=== PATIENT | female | born 1940 | race African-American/Black ===

== ENCOUNTER 2018-04-11 09:10 | Inpatient (IN) | payer OTHER ==
[2018-04-11 09:48] LABS: Absolute Lymphocytes (CBC) 0.7 K/uL (0.7-4.9); Absolute Monocytes 0.2 K/uL (0.1-1.3); Absolute Neutrophil 4.8 K/uL (1.8-8.0); Basophils % 0.5 % (0-1.3); Eosinophils % 0.3 % (0-4.4); Hematocrit 32.4 % (36.0-45.0); Lymphocytes % 11.8 % (15.3-44.8); MCH 30.2 pg (27.0-35.0); MPV 9.9 fL (7.6-11.3); Monocytes % 3.1 % (3.3-12.3); RBC Red Blood Cell Count 3.52 M/uL (3.86-4.86)
[2018-04-11 10:40] LABS: Potassium 5.9 mmol/L (3.5-5.1)
[2018-04-11] MEDS ORDERED: ALBUTEROL 2.5 MG/3 ML NEB SOL ONE (11:05)
[2018-04-11] MEDS ORDERED: NA CHLORIDE 0.9% 1,000 ML ONE ×2 (11:05→13:45)
[2018-04-11] MEDS ORDERED: D50W 25 GM/50 ML SYRINGE IV ONE ×2 (11:11→13:10)
[2018-04-11] MEDS ORDERED: Caclcium Chloride 10% INJ SYR IV ONE (11:24)
[2018-04-11 11:31] LABS: Urine Bacteria 20-50 /HPF (<20); Urine Culture Reflex Order REFLEXED
[2018-04-11 11:32] LABS: Urine Blood 3+ (NEG); Urine Glucose NEGATIVE (NEG); Urine Protein 2+ (NEG); Urine Specific Gravity 1.015 (1.005-1.030); Urine pH 6.5 (5.0-7.0)
[2018-04-11 11:32] LABS: Urine Mucus 2+ /HPF (NONE SEEN)
--- NOTE | 2018-04-11 11:47 | RAD REPORT ---
EXAM DESCRIPTION: CT - Stone Protocol - 04/11/2018 11:23 am CLINICAL HISTORY: Abdominal pain. Acute renal insufficiency COMPARISON: January 2017 TECHNIQUE: Computed axial tomography of the abdomen pelvis was obtained without oral or IV contrast. Lack of IV and oral contrast limits evaluation of solid organs, bowel, and vessels. Coronal reformat leonard images were obtained and reviewed. All CT scans are performed using dose optimization technique as appropriate and may include automated exposure control or mA/KV adjustment according to patient size. FINDINGS: Mild to moderate bilateral hydronephrosis. Ureters are dilated. A renal calculus is not se en. An ureteral calculus is not noted. A bladder calculus is not present. There appears to be promine nt soft tissue along the posterior aspect of the bladder bilaterally The liver, spleen, pancreas and adrenals appear grossly normal A filter is present within the inferior vena cava. There is no evidence of diverticulitis. The appendix is normal. Mild periaortic/caval lymphadenopathy diminished in caliber from the prior exam. Pelvic lymph nodes. Largest in the right miter grinder operator chain measuring 49 x 25 millimeters. Right inguinal lymphadenopathy. IMPRESSION: Mild to moderate bilateral hydronephrosis with dilatation the ureters. There appears to be prominent soft tissue involving the posterior aspect of the bladder bilaterally likely obstructing distal ureters
--- NOTE | 2018-04-11 12:16 | RAD REPORT ---
EXAM DESCRIPTION: [place] Single View04/11/2018 11:42 am CLINICAL HISTORY: Abdominal pain COMPARISON: 2017 FINDINGS: The lungs appear clear of acute infiltrate. The heart is mildly enlarged IMPRESSION: No acute abnormalities displayed
[2018-04-11 12:38] LABS: Potassium 5.8 mmol/L (3.5-5.1)
[2018-04-11] MEDS ORDERED: SOD POLYSTYREN SUL 15 GM/60 ML UCUP ONE ×2 (12:45→15:35)
--- NOTE | 2018-04-11 12:50 | EDPHYS ---
Physician Documentation [facility] Name: Sher Martinez Age: 77 yrs Sex: Female : 1940 Arrival Date: 04/11/2018 Time: 09:10 Bed 4 Private MD: ED Physician Roly Monzon HPI: 04/11 09:23 This 77 yrs old Black Female presents to ER via Unassigned with complaints of Low Blood snw Sugar. 09:23 The patient or guardian reports altered mental status, hypoglycemia, that was snw potentially precipitated by recent UTI, with the patient's symptoms witnessed by family. Onset: The symptoms/episode began/occurred suddenly, this morning. Associated signs and symptoms: Pertinent positives: weakness. Current symptoms: In the emergency department the patient's symptoms have improved, moderately. It is unknown whether or not the patient has had similar symptoms in the past. The patient has been recently seen by a physician: the patient's primary care provider, with different complaint(s), and apparently was diagnosed with UTI. Historical: - Allergies: 09:12 metformin; sv - PMHx: 09:12 Diabetes - NIDDM; Hypertension; ovarian CA; sv 09:12 DVT; ca1 - PSHx: 09:12 C section; sv 09:12 IVC filter; ca1 - Immunization history:: Pneumococcal vaccine is not up to date, it has been more than five years since last vaccine, Flu vaccine is not up to date. It has been more than one year since last vaccine. - Ebola Screening: : Patient negative for fever greater than or equal to 101.5 degrees Fahrenheit, and additional compatible Ebola Virus Disease symptoms Patient denies exposure to infectious person Patient denies travel to an Ebola-affected area in the 21 days before illness onset No symptoms or risks identified at this time. - Social history:: Smoking status: Patient/guardian denies using tobacco products, Smoking status: Patient/guardian denies using tobacco. ROS: 09:21 Constitutional: Negative for fever, chills, and weight loss, Eyes: Negative for injury, snw pain, redness, and discharge, ENT: Negative for injury, pain, and discharge, Neck: Negative for injury, pain, and swelling, Cardiovascular: Negative for chest pain, palpitations, and edema, Respiratory: Negative for shortness of breath, cough, wheezing, and pleuritic chest pain, Abdomen/GI: Negative for abdominal pain, nausea, vomiting, diarrhea, and constipation, Back: Negative for injury and pain, : Negative for injury, bleeding, discharge, and swelling, MS/Extremity: Negative for injury and deformity, Skin: Negative for injury, rash, and discoloration. 09:21 Neuro: Positive for altered mental status, weakness, just finished Keflex for UTI, sees PCP at [facility]. Exam: 09:21 Constitutional: This is a well developed, well nourished patient who is awake, alert, snw and in no acute distress. Head/Face: Normocephalic, atraumatic. Eyes: Pupils equal round and reactive to light, extra-ocular motions intact. Lids and lashes normal. Conjunctiva and sclera are non-icteric and not injected. Cornea within normal limits. Periorbital areas with no swelling, redness, or edema. ENT: Nares patent. No nasal discharge, no septal abnormalities noted. Tympanic membranes are normal and external auditory canals are clear. Oropharynx with no redness, swelling, or masses, exudates, or evidence of obstruction, uvula midline. Mucous membranes moist. Neck: Trachea midline, no thyromegaly or masses palpated, and no cervical lymphadenopathy. Supple, full range of motion without nuchal rigidity, or vertebral point tenderness. No Meningismus. Chest/axilla: Normal chest wall appearance and motion. Nontender with no deformity. No lesions are appreciated. Cardiovascular: Regular rate and rhythm with a normal S1 and S2. No gallops, murmurs, or rubs. Normal PMI, no JVD. No pulse deficits. Respiratory: Lungs have equal breath sounds bilaterally, clear to auscultation and percussion. No rales, rhonchi or wheezes noted. No increased work of breathing, no retractions or nasal flaring. Abdomen/GI: Soft, non-tender, with normal bowel sounds. No distension or tympany. No guarding or rebound. No evidence of tenderness throughout. Back: No spinal tenderness. No costovertebral tenderness. Full range of motion. Skin: Warm, dry with normal turgor. Normal color with no rashes, no lesions, and no evidence of cellulitis. MS/ Extremity: Pulses equal, no cyanosis. Neurovascular intact. Full, normal range of motion. Neuro: Awake and alert, GCS 15, oriented to person, place, time, and situation. Cranial nerves II-XII grossly intact. Motor strength 5/5 in all extremities. Sensory grossly intact. Cerebellar exam normal. Normal gait. Psych: Awake, alert, with orientation to person, place and time. Behavior, mood, and affect are within normal limits. Vital Signs: 09:06 BP 147 / 57; Pulse 73; Resp 19 S; Pulse Ox 96% on R/A; Weight 98.43 kg; Height 5 ft. 2 ca1 in. (157.48 cm); 09:12 Temp 96.6(TE); aa5 10:05 BP 110 / 83; Pulse 69; Resp 18; Pulse Ox 100% on R/A; ca1 10:45 BP 120 / 71; Pulse 69; Resp 18; Pulse Ox 100% on R/A; ca1 11:50 BP 121 / 107; Pulse 69; Resp 16; Pulse Ox 100% on R/A; ca1 12:31 BP 136 / 72; Pulse 66; Resp 13; Temp 97.4(C); Pulse Ox 100% on R/A; mh5 12:55 BP 148 / 66; Pulse 81; Resp 19; Temp 98.2(C); Pulse Ox 100% on R/A; ca1 13:17 BP 140 / 66; Pulse 81; Resp 19; Temp 97.2; Pulse Ox 100% on R/A; ca1 14:21 BP 135 / 59; Pulse 83; Resp 18; Temp 98.2; Pulse Ox 100% on R/A; ca1 15:32 BP 148 / 66; Pulse 81; Resp 18; Temp 98.2(C); Pulse Ox 100% on R/A; ca1 16:36 BP 136 / 59; Pulse 82; Resp 19; Temp 98.9; Pulse Ox 100% ; ca1 17:21 BP 141 / 70; Pulse 83; Resp 18; Temp 99.2; Pulse Ox 100% on R/A; ca1 09:06 Body Mass Index 39.69 (98.43 kg, 157.48 cm) ca1 MDM: 09:13 Patient medically screened. snw 12:50 Data reviewed: vital signs, nurses notes. Data interpreted: Pulse oximetry: on room air snw is 100 %. Interpretation: normal. Counseling: I had a detailed discussion with the patient and/or guardian regarding: the historical points, exam findings, and any diagnostic results supporting the discharge/admit diagnosis, the presence of at least one elevated blood pressure reading (>120/80) during this emergency department visit, lab results, radiology results, the need for further work-up and treatment in the hospital. Physician consultation: Pee Villagomez MD was called at 12:40, was contacted at 12:45, regarding consult. 12:51 Physician consultation: Man Hernandez MD was called at 12:51, was contacted at 12:51, snw regarding admission, to the telemetry unit. Inpatient status per Admitting MD. 15:00 Physician consultation: Pee Villagomez MD in the emergency department to see patient at snw 15:33. 15:15 Physician consultation: Laurie Rodriguez MD was called at 15:15, regarding snw consult, patient's condition. 04/11 09:11 Order name: glucometer results - FOR PT WITH NO ID; Complete Time: 09:25 aa5 04/11 09:25 Order name: Basic Metabolic Panel; Complete Time: 10:43 snw 04/11 09:25 Order name: Blood Culture Adult (2) snw 04/11 09:25 Order name: CBC with Diff; Complete Time: 10:00 snw 04/11 09:25 Order name: Lactate; Complete Time: 10:58 snw 04/11 09:25 Order name: Procalcitonin; Complete Time: 14:01 snw 04/11 09:25 Order name: Urine Microscopic Only; Complete Time: 11:34 snw 04/11 09:39 Order name: Urine Culture snw 04/11 10:50 Order name: Urine Dipstick--Ancillary (enter results); Complete Time: 11:34 bd 04/11 10:59 Order name: Chem 7; Complete Time: 12:39 snw 04/11 14:05 Order name: Chem 7; Complete Time: 14:55 snw 04/11 15:01 Order name: CBC with Automated Diff EDMS 04/11 15:01 Order name: CBC with Automated Diff EDMS 04/11 15:01 Order name: CBC with Automated Diff EDMS 04/11 10:48 Order name: Chest Single View XRAY; Complete Time: 12:21 snw 04/11 10:58 Order name: CT Stone Protocol; Complete Time: 11:56 snw 04/11 14:48 Order name: US Pelvis Complete snw 04/11 15:01 Order name: CBC with Automated Diff EDMS 04/11 15:01 Order name: CBC with Automated Diff EDMS 04/11 15:01 Order name: Comprehensive Metabolic Panel EDMS 04/11 15:01 Order name: Comprehensive Metabolic Panel EDMS 04/11 15:01 Order name: Comprehensive Metabolic Panel EDMS 04/11 15:01 Order name: Comprehensive Metabolic Panel EDMS 04/11 15:01 Order name: Comprehensive Metabolic Panel EDMS 04/11 16:11 Order name: US; Complete Time: 16:14 EDMS 04/11 09:25 Order name: Accucheck; Complete Time: 09:28 snw 04/11 09:25 Order name: Cardiac monitoring; Complete Time: 09:28 snw 04/11 09:25 Order name: EKG - Nurse/Tech; Complete Time: 09:28 snw 04/11 09:25 Order name: Labs collected and sent; Complete Time: 09:28 snw 04/11 09:25 Order name: O2 Per Protocol; Complete Time: 09:28 snw 04/11 09:25 Order name: O2 Sat Monitoring; Complete Time: 09:28 snw 04/11 09:25 Order name: Urine Dipstick-Ancillary (obtain specimen); Complete Time: 12:53 snw 04/11 09:25 Order name: SL; Complete Time: 09:28 snw 04/11 10:46 Order name: Staley; Complete Time: 12:31 snw 04/11 13:02 Order name: Diet Regular; Complete Time: 13:02 snw 04/11 14:59 Order name: NPO; Complete Time: 15:25 EDMS 04/11 15:01 Order name: CONS Physician Consult EDMS 04/11 16:18 Order name: Misc. Order: Dr. Rosales returned call and wishes pt to be prepared for snw dialysis; Complete Time: 16:26 Administered Medications: 11:00 Drug: Albuterol 2.5 mg Route: Inhalation; ca1 11:02 Drug: D50W 50 ml Route: IVP; Site: right antecubital; ca1 12:51 Follow up: Response: No adverse reaction ca1 11:05 Drug: NS 0.9% 1000 ml Route: IV; Rate: 1000 ml; Site: right antecubital; ca1 17:25 Follow up: IV Status: Completed infusion; IV Intake: 1000ml ca1 11:30 Drug: Albuterol 2.5 mg Route: Inhalation; ca1 11:40 Drug: Calcium Chloride 1 grams Route: IVP; Site: right antecubital; ca1 12:38 Follow up: Response: No adverse reaction ca1 11:52 Drug: Albuterol 2.5 mg Route: Inhalation; ca1 12:35 Drug: Kayexalate 15 grams Route: PO; ca1 13:26 Follow up: Response: No adverse reaction ca1 13:02 Drug: D50W 50 ml Route: IVP; Site: right antecubital; aa5 17:19 Follow up: Response: No adverse reaction ca1 15:15 Not Given (Physician Discretion): NS 0.9% 1000 ml IV at 75 ml/hr continuous maryan 15:17 Drug: D5W with Sodium Bicarbonate 50 mEq/L 1000 ml Route: IV; Rate: 100 ml/hr; Site: ca1 right antecubital; 15:30 Drug: Kayexalate 15 grams Route: PO; ca1 17:19 Follow up: Response: No adverse reaction ca1 15:40 Drug: Sodium Bicarbonate 50 mEq Route: IVP; Site: right antecubital; ca1 17:18 Follow up: Response: No adverse reaction ca1 Point of Care Testing: Blood Glucose: 09:11 Blood Glucose: 111 mg/dL; aa5 13:01 Blood Glucose: 45 mg/dL; aa5 13:31 Blood Glucose: 159 mg/dL; ca1 16:28 Blood Glucose: 107 mg/dL; ca1 13:01 PARALEGAL SUPERVISOR notified aa5 Ranges: Critical Glucose Levels:Adult <50 mg/dl or >400 mg/dl <40 mg/dl or >180 mg/dl Disposition: 10:25 Co-signature as Attending Physician, Roly Monzon MD I agree with the assessment and maryan plan of care. Disposition: 04/11/18 12:50 Hospitalization ordered by Man Hernandez for Inpatient Admission. Preliminary diagnosis are Diabetes mellitus due to underlying condition with hypoglycemia without coma, Acute kidney failure - postobstructive. - Bed requested for Intensive Care Unit. - Status is Inpatient Admission. ss - Condition is Stable. - Problem is new. - Symptoms are unchanged. UTI on Admission? No Critical care time excluding procedures: 15:30 Critical care time: Bedside Care: 15 minutes, Consultation: 40 minutes, Family snw Intervention: 15 minutes. Total time: 70 minutes Signatures: Dispatcher [employer] Jacinta Capellan RN Estela Lott RN Roly Bain MD MD cha Therrien, Shelly, ANIMAL CRUELTY INVESTIGATOR-C ANIMAL CRUELTY INVESTIGATOR-Csnw Deisi Casey, RN RN aa5 Snehal Shook RN RN ss AcGabby mcgill RN RN ca1 Corrections: (The following items were deleted from the chart) 11:11 09:25 IV Saline Lock - Large Bore ordered. sn aa5 13:01 12:51 Physician consultation: Man Hernandez MD was called at 12:51, was contacted at [facility] 12:51, regarding admission, to the telemetry unit. [facility] 15:12 12:50 Hospitalization Ordered by Man Hernandez MD for Inpatient Admission. Preliminary dw diagnosis is Diabetes mellitus due to underlying condition with hypoglycemia without coma; Acute kidney failure - postobstructive. Bed requested for Telemetry/MedSurg (Inpatient). Status is Inpatient Admission. Condition is Stable. Problem is new. Symptoms are unchanged. UTI on Admission? No. snw 16:27 15:12 04/11/2018 12:50 Hospitalization Ordered by Man Hernandez MD for Inpatient dw Admission. Preliminary diagnosis is Diabetes mellitus due to underlying condition with hypoglycemia without coma; Acute kidney failure - postobstructive. Bed requested for Telemetry/MedSurg (Inpatient). Status is Inpatient Admission. Condition is Stable. Problem is new. Symptoms are unchanged. UTI on Admission? No. dw 17:35 16:27 04/11/2018 12:50 Hospitalization Ordered by Man Hernandez MD for Inpatient ss Admission. Preliminary diagnosis is Diabetes mellitus due to underlying condition with hypoglycemia without coma; Acute kidney failure - postobstructive. Bed requested for Intensive Care Unit. Status is Inpatient Admission. Condition is Stable. Problem is new. Symptoms are unchanged. UTI on Admission? No. dw
--- NOTE | 2018-04-11 12:50 | ER ---
Nurse's Notes [facility] Name: Sher Martinez Age: 77 yrs Sex: Female : 1940 Arrival Date: 04/11/2018 Time: 09:10 Bed 4 Private MD: Diagnosis: Diabetes mellitus due to underlying condition with hypoglycemia without coma;Acute kidney failure-postobstructive Presentation: 04/11 09:06 Presenting complaint: EMS states: FSBG 49 upon scene arrival. patient was with slurred ca1 speech and with weakness. FSBG increased to 93 after administration of Glucagon. Patient A\T\O x4 as of this time. Clear speech noted. 09:06 Transition of care: patient was not received from another setting of care. Onset of ca1 symptoms was April 11, 2018 at 07:45. Risk Assessment: Do you want to hurt yourself or someone else? Patient reports no desire to harm self or others. Initial Sepsis Screen: Does the patient meet any 2 criteria? No. Patient's initial sepsis screen is negative. Does the patient have a suspected source of infection? No. Patient's initial sepsis screen is negative. Care prior to arrival: Medication(s) given: Glucagon. 09:06 Method Of Arrival: EMS: [facility] ca1 09:06 Acuity: KAREN 3 ca1 Historical: - Allergies: 09:12 metformin; sv - PMHx: 09:12 Diabetes - NIDDM; Hypertension; ovarian CA; sv 09:12 DVT; ca1 - PSHx: 09:12 C section; sv 09:12 IVC filter; ca1 - Immunization history:: Pneumococcal vaccine is not up to date, it has been more than five years since last vaccine, Flu vaccine is not up to date. It has been more than one year since last vaccine. - Ebola Screening: : Patient negative for fever greater than or equal to 101.5 degrees Fahrenheit, and additional compatible Ebola Virus Disease symptoms Patient denies exposure to infectious person Patient denies travel to an Ebola-affected area in the 21 days before illness onset No symptoms or risks identified at this time. - Social history:: Smoking status: Patient/guardian denies using tobacco products, Smoking status: Patient/guardian denies using tobacco. Screenin:08 Abuse screen: Denies threats or abuse. Nutritional screening: No deficits noted. ca1 Tuberculosis screening: No symptoms or risk factors identified. Fall Risk Fall in past 12 months (25 points). Assessment: 09:07 General: Appears in no apparent distress. comfortable, Behavior is calm, cooperative. ca1 Pain: Denies pain. 09:07 Neuro: Level of Consciousness is awake, alert, obeys commands, Oriented to person, ca1 place, time, situation, Bacteriology Research Assistant are equal bilaterally Moves all extremities. Full function Speech is normal, Facial symmetry appears normal, Facial symmetry: tongue is midline, Pupils are PERRLA, Intact. Cardiovascular: Heart tones S1 S2 present. Cardiovascular: Edema is 2+ to left ankle, left foot, left toes, right ankle, right foot and right toes. Respiratory: Airway is patent Trachea midline Respiratory effort is even, unlabored, Respiratory pattern is regular, symmetrical, Breath sounds are clear bilaterally. GI: Abdomen is round Bowel sounds present X 4 quads. Abd is soft and non tender X 4 quads. :. Derm: Skin is intact, is healthy with good turgor, Skin is dry, Skin temperature is warm. Musculoskeletal: Swelling present in right foot, left foot, right leg and left leg. 10:16 Reassessment: Patient appears in no apparent distress at this time. No changes from ca1 previously documented assessment. Patient and/or family updated on plan of care and expected duration. Pain level reassessed. Patient is alert, oriented x 3, equal unlabored respirations, skin warm/dry/pink. 10:55 Reassessment: Patient appears in no apparent distress at this time. No changes from ca1 previously documented assessment. Patient and/or family updated on plan of care and expected duration. Pain level reassessed. Patient is alert, oriented x 3, equal unlabored respirations, skin warm/dry/pink. Frida explained the need for further diagnostic tests.. 11:56 Reassessment: Patient appears in no apparent distress at this time. No changes from ca1 previously documented assessment. Patient and/or family updated on plan of care and expected duration. Pain level reassessed. Patient is alert, oriented x 3, equal unlabored respirations, skin warm/dry/pink. 13:01 Reassessment: Pt sitting up in bed, awake and alert x 4, equal unlabored respirations, aa5 skin is normal/warm/dry. Pt denies any symptoms at this time, FSBG 45 . 13:20 Reassessment: Patient appears in no apparent distress at this time. No changes from ca1 previously documented assessment. Patient and/or family updated on plan of care and expected duration. Pain level reassessed. Patient is alert, oriented x 3, equal unlabored respirations, skin warm/dry/pink. 13:40 Reassessment: Patient appears in no apparent distress at this time. Patient Sitting up ca1 in bed eating lunch. . 14:03 Reassessment: Assisted patient to bedside commode for bowel movement. . ca1 14:47 Reassessment: Patient appears in no apparent distress at this time. Patient is alert, ca1 oriented x 3, equal unlabored respirations, skin warm/dry/pink. Patient denies pain at this time. Requested to be assisted to a comfortable position. Informed patient and family of admission and waiting for available room. . 15:30 Reassessment: Patient appears in no apparent distress at this time. Patient is alert, ca1 oriented x 3, equal unlabored respirations, skin warm/dry/pink. Instructed patient and family on NPO. . 15:52 Reassessment: Patient appears in no apparent distress at this time. Patient is alert, ca1 oriented x 3, equal unlabored respirations, skin warm/dry/pink. Assisted patient bedside commode. Put patient back in bed comfortably after. Noticed soft stool.. 17:00 Reassessment: Patient appears in no apparent distress at this time. Patient is alert, ca1 oriented x 3, equal unlabored respirations, skin warm/dry/pink. Assisted patient to bedside commode. Cleaned patient after bowel movement noticed blood streaks at wipes. Patient and family instructed on NPO and need for ICU admission.. Vital Signs: 09:06 BP 147 / 57; Pulse 73; Resp 19 S; Pulse Ox 96% on R/A; Weight 98.43 kg; Height 5 ft. 2 ca1 in. (157.48 cm); 09:12 Temp 96.6(TE); aa5 10:05 BP 110 / 83; Pulse 69; Resp 18; Pulse Ox 100% on R/A; ca1 10:45 BP 120 / 71; Pulse 69; Resp 18; Pulse Ox 100% on R/A; ca1 11:50 BP 121 / 107; Pulse 69; Resp 16; Pulse Ox 100% on R/A; ca1 12:31 BP 136 / 72; Pulse 66; Resp 13; Temp 97.4(C); Pulse Ox 100% on R/A; mh5 12:55 BP 148 / 66; Pulse 81; Resp 19; Temp 98.2(C); Pulse Ox 100% on R/A; ca1 13:17 BP 140 / 66; Pulse 81; Resp 19; Temp 97.2; Pulse Ox 100% on R/A; ca1 14:21 BP 135 / 59; Pulse 83; Resp 18; Temp 98.2; Pulse Ox 100% on R/A; ca1 15:32 BP 148 / 66; Pulse 81; Resp 18; Temp 98.2(C); Pulse Ox 100% on R/A; ca1 16:36 BP 136 / 59; Pulse 82; Resp 19; Temp 98.9; Pulse Ox 100% ; ca1 17:21 BP 141 / 70; Pulse 83; Resp 18; Temp 99.2; Pulse Ox 100% on R/A; ca1 09:06 Body Mass Index 39.69 (98.43 kg, 157.48 cm) ca1 ED Course: 09:10 Patient arrived in ED. ss 09:11 Patient has correct armband on for positive identification. Placed in gown. Bed in low sv position. Side rails up X2. engine monitor on. Pulse ox on. NIBP on. Head of bed elevated. 09:13 Frida Azar F[facility]-C [facility]. snw 09:13 Roly Moznon MD is Attending Physician. snw 09:32 EKG done, by ED staff, reviewed by Frida KELLY. Missed attempt(s): 20 gauge mh5 in left antecubital area. 09:33 Call light in reach. Adult w/ patient. Warm blanket given. mh5 09:42 Triage completed. ca1 09:55 Inserted saline lock: 24 gauge in right antecubital area, using aseptic technique. ss Blood collected. 11:[address] via stretcher. ca1 11:23 Gabby Lyon, MARISOL is Primary Nurse. ca1 11:24 CT Stone Protocol In Process Unspecified. EDMS 11:29 CT completed. Patient moved back from CT. bq 11:41 X-ray completed. Portable x-ray completed in exam room. Patient tolerated procedure la2 well. 11:42 Chest Single View XRAY In Process Unspecified. EDMS 12:10 Staley cath inserted, using sterile technique, 18 Fr., by me, balloon inflated, to ca1 gravity drainage, urine specimen collected. other Urine culture sent to lab. returned blood tinged urine. . Patient tolerated well. 12:48 Man Hernandez MD is Hospitalizing Provider. snw 15:39 Ultrasound completed. Patient tolerated well. sg3 17:03 No provider procedures requiring assistance completed. ca1 17:52 Patient admitted, IV remains in place. ca1 Administered Medications: 11:00 Drug: Albuterol 2.5 mg Route: Inhalation; ca1 11:02 Drug: D50W 50 ml Route: IVP; Site: right antecubital; ca1 12:51 Follow up: Response: No adverse reaction ca1 11:05 Drug: NS 0.9% 1000 ml Route: IV; Rate: 1000 ml; Site: right antecubital; ca1 17:25 Follow up: IV Status: Completed infusion; IV Intake: 1000ml ca1 11:30 Drug: Albuterol 2.5 mg Route: Inhalation; ca1 11:40 Drug: Calcium Chloride 1 grams Route: IVP; Site: right antecubital; ca1 12:38 Follow up: Response: No adverse reaction ca1 11:52 Drug: Albuterol 2.5 mg Route: Inhalation; ca1 12:35 Drug: Kayexalate 15 grams Route: PO; ca1 13:26 Follow up: Response: No adverse reaction ca1 13:02 Drug: D50W 50 ml Route: IVP; Site: right antecubital; aa5 17:19 Follow up: Response: No adverse reaction ca1 15:15 Not Given (Physician Discretion): NS 0.9% 1000 ml IV at 75 ml/hr continuous maryan 15:17 Drug: D5W with Sodium Bicarbonate 50 mEq/L 1000 ml Route: IV; Rate: 100 ml/hr; Site: ca1 right antecubital; 15:30 Drug: Kayexalate 15 grams Route: PO; ca1 17:19 Follow up: Response: No adverse reaction ca1 15:40 Drug: Sodium Bicarbonate 50 mEq Route: IVP; Site: right antecubital; ca1 17:18 Follow up: Response: No adverse reaction ca1 Point of Care Testing: Blood Glucose: 09:11 Blood Glucose: 111 mg/dL; aa5 13:01 Blood Glucose: 45 mg/dL; aa5 13:31 Blood Glucose: 159 mg/dL; ca1 16:28 Blood Glucose: 107 mg/dL; ca1 13:01 ADMINISTRATIVE OFFICER notified aa5 Ranges: Intake: 17:25 IV: 1000ml; Total: 1000ml. ca1 Output: 10:50 Urine: 10ml (Voided); Total: 10ml. ca1 12:30 Urine: 75ml (Staley); Total: 85ml. ca1 Outcome: 12:50 Decision to Hospitalize by Provider. snw 17:35 Patient left the ED. ss 17:35 Admitted to ICU accompanied by nurse, family with patient, via stretcher, room 6, on ca1 monitor, with chart, Report called to MARISOL Cosme. 17:35 Condition: stable 17:35 Instructed on the need for admit. Signatures: Dispatcher [employer] EDJacinta Rascon RN RN Frida Azar, PHP ENGINEER-C PHP ENGINEER-Csnw Glo Ocampo Audri, RN RN aa5 Smirch, Shelby, RN RN [facility] Yudy Regan Sarah sg3 Gabby Lyon RN RN ca1 Anderson, Corey MD cha Corrections: (The following items were deleted from the chart) 10:52 10:16 Reassessment: Patient is alert, oriented x 3, equal unlabored respirations, skin ca1 warm/dry/pink. ca1 11:54 11:05 Albuterol 2.5 mg Inhalation ca1 ca1 13:58 13:01 Blood Glucose: Blood Glucose Reading=45 mg/dL. aa5 [facility] 13:58 13:11 Blood Glucose: Notes=ADMINISTRATIVE OFFICER notified, Blood Glucose Reading=45 mg/dL. aa5 aa5 18:03 17:59 Admitted to ICU ca1 ca1 18:15 17:00 Reassessment: Patient appears in no apparent distress at this time. Patient is ca1 alert, oriented x 3, equal unlabored respirations, skin warm/dry/pink. Assisted patient to bedside commode. Cleaned patient after bowel movement noticed bright red blood at wipes.. ca1
[2018-04-11 14:51] LABS: Potassium 5.5 mmol/L (3.5-5.1)
[2018-04-11] MEDS ORDERED: ACETAMINOPHEN 500 MG TAB PO PRN (14:57)
[2018-04-11] MEDS ORDERED: ONDANSETRON 4 MG/2 ML VIAL IV PRN (14:57)
[2018-04-11] MEDS ORDERED: D5 0.9 NS 0 ML IV ONE (15:15)
[2018-04-11] MEDS ORDERED: D5W 1,000 ML IV ONE ×2 (15:18→23:19)
--- NOTE | 2018-04-11 16:10 | RAD REPORT ---
EXAM DESCRIPTION: US - Pelvis Complete - 04/11/2018 3:44 pm CLINICAL HISTORY: Pelvic mass COMPARISON: CT April 11 FINDINGS: A Staley catheter is present within the bladder. The bladder is collapsed and poorly evalua leonard. Pelvic lymph nodes are noted. Largest lies within the right pelvis measuring approximately 4 x 2 cent imeters. IMPRESSION: Poor evaluation of the bladder as it is decompressed secondary to a Staley catheter in pl jo ann.
[2018-04-11 17:44] VITALS: O2SAT 100
[2018-04-11] MEDS ORDERED: D5W 1,000 ML IV SCH (19:00)
--- NOTE | 2018-04-11 19:41 | CON ---
Chief Complaint: Acute renal failure. History Of Present Illness: This is a 77-year-old black female that came in for low blood sugar, she got a chem-7 done showing that also her potassium was 5.9 and her BUN and creatinine was 129 and 15.5 with a GFR 3, acute renal failure. Chem 7 was repeated and the result was consistent. Her last chem-7 was done in January 2017. At that time, her BUN was 10 and creatinine was 0.3. GFR greater than 90. The patient has a complicated history of ovarian cancer and endometrial cancer that was diagnosed last year. She also had a DVT in January 2017. She had her hysterectomy and salpingo-oophorectomy in April 2017. She had both neoadjuvant and adjuvant chemotherapy. Her last chemotherapy was 2 months ago. She said the pathology only revealed a tiny amount of cancer very less than the doctor expected at [facility]. She said she was in good state of health until 5 days ago. She did note that she passed a little blood and some bladder irritation, so she went to the [facility] that gave her Keflex to take. However, she came in today because of passing out and she was hypoglycemic. She actually fell in the bathroom and when she arrived, her glucose was in the 40s. ER providers fed her and gave her glucose since. However, her CT scan reveals some troubling findings of mild-to- moderate bilateral hydroureteronephrosis all the way down to the bladder. No kidney stones are seen. No bladder stones were seen. There is some prominent soft tissue along the posterior aspect of the bladder bilaterally. She has a vena cava filter in the inferior vena cava. Her mild periaortic and caval lymphadenopathy has diminished in caliber from prior exam, but still has some pelvic nodes. The largest one was 49 x 25 mm on the right side. So, she does seem to have some obstruction in the distal ureters bilaterally. She is going to need an attempted cysto and stent placement but she ate today. As she is on Xarelto, last taken day prior, we are going to try to attempt to do this in the morning. Allergies: METFORMIN CAUSES ANAPHYLAXIS. Past Medical History: Mom-avqbrav-kfzbfuiha diabetes mellitus, hypertension, ovarian CA, endometrial CA, DVT filter, hypertension, hyperlipidemia, obesity. Past Surgical History: , IVC filter, radical hysterectomy. Review of Systems: A 10-point review of systems otherwise negative. Physical Examination: Vital Signs: Afebrile. Stable. Blood pressure 147/57, pulse 72, respirations 19, pulse ox 96% on room air. She weighs 98 kg. Height 5 feet 2 inches. Laboratory Studies: Shows CBC; white count 5.6, hemoglobin and hematocrit 10 and 32, platelet count 176. Chemistry; sodium 140, potassium 5.9, chloride 109 , carbon dioxide 16, BUN 129, creatinine 15.50, GFR 3, glucose 91. Urine study shows 3+ blood, nitrate negative, esterase trace, bacteria 20 to 50, squamous cells 5 to 10. 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 This could be a bladder cancer versus cervical cancer versus scar tissue versus some type of iatrogenic injury from back then. Difficult to say, either way she needs to be drained. We are going to attempt to do a cysto bilateral stents. If we are not able to get stents, she will need percutaneous nephrostomy tubes. If we don't get stents in , she would need to go to [facility] for P[facility]. In the meanwhile, we will hold her Xarelto, get a WILDLIFE SCIENCE PROFESSOR consult to rule out any recurrent tumor in the area, get a transvaginal ultrasound to rule out any tumor in that area, make her n.p.o. Overnight, and get her consented. FRANC/JIN Voice ID: [id number] Report ID: [id number] PRASHANTH
[2018-04-11] MEDS: D5W 1,000 ML with NA BICARB 8.4% 100 MEQ IV SCH ×2 (23:18)
[2018-04-12 05:35] LABS: Absolute Monocytes 0.5 K/uL (0.1-1.3); Absolute Neutrophil 4.1 K/uL (1.8-8.0); Basophils % 0.4 % (0-1.3); Eosinophils % 0.9 % (0-4.4); Hematocrit 25.7 % (36.0-45.0); MCH 31.1 pg (27.0-35.0); MCV 90.8 fL (80-100); MPV 9.9 fL (7.6-11.3); Monocytes % 8.8 % (3.3-12.3); RBC Red Blood Cell Count 2.83 M/uL (3.86-4.86)
[2018-04-12 05:58] LABS: Albumin 2.8 g/dL (3.4-5.0); Bilirubin Total 0.3 mg/dL (0.2-1.0); Potassium 4.9 mmol/L (3.5-5.1); Protein, Total 6.9 g/dL (6.4-8.2)
[2018-04-12 06:03] VITALS: BMI 41.6
[2018-04-12] MEDS ORDERED: D50W 25 GM/50 ML SYRINGE IV ONE (06:30)
[2018-04-12] MEDS ORDERED: NA CHLORIDE 0.9% 1,000 ML ONE (08:05)
[2018-04-12] MEDS ORDERED: SUCCINYLCHOLINE 20 MG/ML (10 ML) IV ONE (08:16)
[2018-04-12] MEDS ORDERED: PROPOFOL 200 MG/20 ML VIAL IV ONE (08:19)
[2018-04-12] MEDS ORDERED: MIDAZOLAM HCL 2 MG/2 ML INJ ONE (08:19)
[2018-04-12] MEDS ORDERED: FENTANYL CITR 100 MCG/2 ML ONE (08:19)
[2018-04-12] MEDS ORDERED: CEFTRIAXONE/SWI 1gm 1 GM/10 ML SYR IV SCH (09:00)
[2018-04-12] MEDS: D5W 1,000 ML with NA BICARB 8.4% 100 MEQ IV SCH ×4 (10:00→11:29)
--- NOTE | 2018-04-12 10:55 | RAD REPORT ---
EXAM DESCRIPTION: RAD - Urethrocystogrphy Retrograde - 04/12/2018 9:11 am CLINICAL HISTORY: OBSTRUCTION MALU COMPARISON: No comparisons FINDINGS: Fluoroscopic imaging of the abdomen was performed as part of a cystoscopy and retrograde u reteroscopy procedure. Details of procedure not available. Total fluoro time: 0.2 minutes
[2018-04-12 11:17] LABS: Hematocrit 27.6 % (36.0-45.0)
--- NOTE | 2018-04-12 11:25 | P.HP ---
Certification for Inpatient Patient admitted to: Inpatient With expected LOS: >2 Midnights Practitioner: I am a practitioner with admitting privileges, knowledge of patient current condition, hospital course, and medical plan of care. Services: Services provided to patient in accordance with Admission requirements found in Title 42 Section 412.3 of the Code of Federal Regulations Patient History Date of Service: 04/17/18 Reason for admission: Hypoglycemia and falls History of Present Illness: THis is a 77 year old female with hx of cervical/ovarian cancer s/p chemo and radiation admitted for hypoglycemia and falls. Per family and patient, she had had a few falls throughout the day prior to admission. She was found to have low blood sugar at home and EMS was called. In the ED, she was found to have a creatinine of 15.[address] scan of the abdomen was done, which noted to have obstruction and bilateral hydronephrosis. She was admitted for further care and evaluation. Allergies metformin Adverse Reaction (Intermediate, Verified 01/21/17 15:29) Anaphylaxis Home Medications: Enalapril/Hydrochlorothiazide [Vaseretic 10-25 mg Tablet] 1 tab PO DAILY Rivaroxaban [Xarelto] 20 mg PO DAILY #30 tab 01/23/17 Glipizide [Glipizide ER] 5 mg PO DAILY 04/11/18 Rosuvastatin Calcium [Crestor] 20 mg PO DAILY 04/11/18 - Past Medical/Surgical History Has patient received pneumonia vaccine in the past: No Diabetic: Yes -: high cholesterol -: high blood pressure -: NIDDM -: HTN -: Ovarian Cancer -: DVT -: c section -: IVC Filter - Family History Mother -: Heart disease Notes: Heart Failure Father -: Other (see notes) Notes: Pneumonia Brother -: Kidney disease Notes: Renal Failure Sister -: Cancer Notes: Patient states that she has two sister that from breast cancer. - Social History Smoking Status: Never smoker Alcohol use: No CD- Drugs: No Caffeine use: No Review of Systems General: Weakness, As per HPI Eyes: Unremarkable ENT: Unremarkable Respiratory: Unremarkable Cardiovascular: Unremarkable Gastrointestinal: Unremarkable Genitourinary: As per HPI Musculoskeletal: Unremarkable Integumentary: Unremarkable Neurological: Unremarkable Lymphatics: Unremarkable Physical Examination - Vital Signs Temperature: 97.2 F Blood Pressure: 140/64 Pulse: 72 Respirations: 16 Pulse Ox (%): 98 - Physical Exam General: Alert, In no apparent distress, Oriented x3 HEENT: Atraumatic, PERRLA, Mucous membr. moist/pink, EOMI, Sclerae nonicteric Neck: Supple, 2+ carotid pulse no bruit, No LAD, Without JVD or thyroid abnormality Respiratory: Clear to auscultation bilaterally, Normal air movement Cardiovascular: Regular rate/rhythm, Normal S1 S2 Gastrointestinal: Normal bowel sounds, No tenderness Musculoskeletal: No tenderness Integumentary: No rashes Neurological: Normal gait, Normal speech, Normal strength at 5/5 x4 extr, Normal tone, Normal affect Lymphatics: No axilla or inguinal lymphadenopathy - Studies Laboratory Data (last 24 hrs) 04/11/18 14:12: Sodium 143, Potassium 5.5 H, BUN 132 H, Creatinine 15.70 H*, Glucose 78 04/11/18 11:55: Sodium 141, Potassium 5.8 H*, BUN 133 H, Creatinine 15.50 H*, Glucose 88 Microbiology Data (last 24 hrs): 04/11/18 10:15 Blood - Blood Anaerobic Blood Culture - Final 04/11/18 09:50 Blood - Blood Anaerobic Blood Culture - Final Assessment and Plan - Plan This is a 77 yr old female with: Acute kidney injury Obstructive uropathy Likely secondary to bilateral obstruction, which is likely secondary to local obstruction from tumor. Dr. Villagomez consulted, he will attempt stent placement w/ cysto tomorrow am. Nephrology consulted Will continue to monitor. History of cervical/ovarian cancer with chemo and radiation by Dr. De Souza of [facility] patient on oral januvia at home hypoglycemia likely 2/2 acute kidney injury. Will hold medications, continue to monitor. D5 as needed DM type 2 Hold medication at this time due to hypoglycemia Essential HTN Continue home medications as needed Hx of DVT, on xarelto will continue AC DVT prophylaxis: Xarelto GI prophylaxis: None needed DIet: NPO for procedure Dispo: pending cysto/stent placement. May need to transfer patient for uro/pharmacy informaticist- onc for higher level of care. - Advance Directives Does patient have a Living Will: No Does patient have a Durable POA for Healthcare: No Physician Review: Patient Assessed, Agree with Above Assessment and Plan Time Spent Managing Pts Care (In Minutes): 55
--- NOTE | 2018-04-12 12:33 | RAD REPORT ---
EXAM DESCRIPTION: RAD - Chest Single View - 04/12/2018 2:07 am CLINICAL HISTORY: S/P PICC COMPARISON: Chest Single View dated 04/11/2018; Chest Single View dated 01/21/2017; CHEST SINGLE VIEW dated 07/25/2015; CHEST SINGLE VIEW dated 05/08/2015 FINDINGS: Portable chest was obtained following placement of a right upper extremity PICC line. The catheter tip projects over the SVC..
--- NOTE | 2018-04-12 15:34 | OP ---
Surgeon: Pee Villagomez MD Anesthesiologist: Dr. Walton. Preoperative Diagnoses: Acute renal failure, GFR 3; bilateral hydroureteronephrosis; bladder mass, rule out EMBOSSING TOOL SETTER cancer. Procedure Performed: Cystoscopy, bladder biopsy, placement of 3-way hematuria Staley, vaginoscopy with 23-Guinean cystoscope and 30-degree lens. Complex procedure, unable to find orifices. There was a tumor looks like invasive tumor or metastatic tumor all over the trigone of the bladder towards the bladder neck covering up the orifices and is be extending laterally to the right and left sides of the bladder and slightly posterior. The dome of the bladder was clear. Posterior bladder was clear. Unable to find orifice. Unable to do retrograde. Unable to place double-J stent. Anesthesia: General. Estimated Blood Loss: Less than 5 cc. Specimens: Biopsies x2. Complications: None. Drains: A 24-Guinean 3-way hematuria catheter. Description Of Procedure: Ms. 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 She was given all the general information, alternatives, and risks. She has been off her Xarelto for about 2 days now, which was taken back for attempted stent placement. She needs some kind of draingage either cysto stent or nephrostomy, but we need to try before they would accept her for transfer for nephrostomy tubes. The patient was taken to the operative room, placed in a supine lithotomy position. They were prepped and draped. We entered the bladder with a 23-Guinean obturator. A 30-degree lens was placed. Tumor was found all over the trigone and towards the bladder neck area, fluffy looking type of tumor. Couple of areas were solid distally. Tumor extended over the entire trigone up to the right side and left side. The posterior bladder wall was clear. The dome of the bladder was clear. We also scoped with a 70 and 30 degree lens and a cold cup biopsy was done via the 30-degree lens and on other solid masses on the right side towards the bladder neck area x2, and then this was coagulated with a Bugbee electrode and 20 milliamps of current. We then continued to look for the orifices, but were not able to find. The biopsy was made out directly at the area where the orifices where predicted to be. No efflux of urine was seen. With a GFR of 3, not much efflux was expected. We then did a vaginoscopy to see if there is some type of invasive tumor from the cervical area. I did not see any significant masses in the area. Most of the tumor appears to be in the trigone of the bladder. Procedure was then terminated and the patient went to recovery room in stable condition. Her primary hospitalist doctor, Dr. Hernandez was called and told about what we did an I recommended transferring her for percutaneous bilateral nephrostomy tubes with [place]. Her oncologist is at [facility] in [place]. CHARO Voice ID: [id number] Report ID: [id number] MTDD
--- NOTE | 2018-04-12 22:49 | CON ---
Date of Consultation: 04/12/2018 Chief Complaint: Acute kidney injury. History Of Present Illness: Acute kidney injury, severe, oliguric associated with metabolic acidosis, hyperkalemia. The patient was found to have obstructive uropathy and hydronephrosis. Urology consultation was requested and the patient is undergoing cystoscopy with stent placement. This morning she was scheduled for procedure and the procedure was unsuccessful. The patient presented to the hospital yesterday. She was found to have elevated azotemia. Creatinine was 15.5. On previous occasion lab work obtained back in 2016 showed a creatinine of 0.56. The patient did not have a history of chronic kidney disease. The patient remains oliguric. After procedure she denies complaint although she complains of generalized weakness. CT scan of the abdomen and pelvis without contrast was done upon admission and the patient was admitted to ICU for uremia, hyperkalemia, metabolic acidosis. The patient was started on sodium bicarbonate drip to control metabolic acidosis. The CT scan of the abdomen and pelvis showed mild to moderate bilateral hydronephrosis with dilated ureters. There is prominent soft tissue involving posterior aspect of the bladder bilaterally likely obstructing distal ureters. The patient is 77- year-old female who came to the hospital because of hypoglycemia. A chemistry panel was done and showed potassium of 5.9, BUN 129, creatinine 15.5. The patient is admitted for acute kidney injury and additional workup showed possible obstructive uropathy with hydronephrosis. The patient has history of complicated ovarian cancer and endometrial cancer and this was diagnosed last year. She had episodes of DVT back in January 2017. She had hysterectomy and salpingo-oophorectomy done in April 2017. She had both neoadjuvant and adjuvant chemotherapy done. Last chemotherapy was done 2 months ago. The patient was treated at [facility]. She apparently was in good state of health until 5 days ago when she passed a little bit blood and developed some bladder irritation. She went to [facility] and received Keflex to treat urinary tract infection. The patient prior to this admission sustained a fall at home. When she arrived to emergency room , blood glucose was in 40s and she was treated for hypoglycemia. Previously, she did not have any history of kidney stones. She denied fever and additional workup with CT scan showed [id number] bilateral hydronephrosis. There is periaortic lymphadenopathy present. Review of Systems: Unobtainable. The patient is lethargic, remains in ICU. Past Medical History: Stw-rgzzkdb-pavjogqsv diabetes mellitus, hypertension, ovarian cancer, endometrial cancer, DVT filter, hyperlipidemia, obesity. Past Surgical History: , IVC filter, radical hysterectomy. Physical Examination: General: The patient is arousable, lethargic. Follows some commands. Vital Signs: Blood pressure 147/67, heart rate 72, respiratory rate 18, pulse oximeter 96% on room air. Eyes: Anicteric sclerae. EOMI. Ears, Nose, Mouth and Throat: Oral mucosa moist. No pallor. Neck: Supple. No bruits. Lungs: Clear to auscultation bilaterally. No rhonchi. Abdomen: Soft, benign. Nontender. No rebound. No guarding. Extremities: No clubbing, no cyanosis, no edema. Neurological: The patient is lethargic. There is no tremor. Skin: Warm and dry. No skin rashes. Lab Results: CBC results: WBC 5.6, hemoglobin 10, hematocrit 32, platelet count 176. Sodium 140, potassium 5.9, chloride 109, carbon dioxide is 16, BUN 129, creatinine 15.5, glucose 91. Urinalysis showed 3+ blood, nitrite negative , esterase trace, bacteria 20-50, squamous cells 5-10. Impression And Plan: The patient has multiple medical problems. She presented with hypoglycemia, generalized weakness, status post fall. She has history of an endometrial cancer and ovarian cancer status post treatment with radical hysterectomy done in April 2017. The patient was found to have bilateral hydronephrosis, acute kidney injury with hyperazotemia, electrolyte abnormalities and acidosis. The patient was treated with sodium bicarbonate drip to control acidosis and treat hyperkalemia. The patient received dextrose infusion for hypoglycemia. The patient will need to start dialysis to treat uremia. The patient will be transferred to [facility] for further workup and to treat obstructive uropathy. The patient may require surgery. I discussed with the family members, her daughters at the bedside. The patient will need dialysis for metabolic clearance as soon as possible within next 24 hours. Potassium level is in good control with sodium bicarbonate drip and acidosis related to hyperchloremic metabolic acidosis is resolving with IV drip although patient will need to start dialysis to prevent uremic symptomatology. All of the recommendation were discussed at length with the patient's daughter at the bedside and all questions were answered. EB/JIN Voice ID: [id number] Report ID: [id number] PRASHANTH
--- NOTE | 2018-04-13 11:38 | EKG ---
Test Date: 2018-04-11 Test Time: 09:28:27 [employer] President: WAN MEASUREMENT RESULTS: Intervals: Rate: 70 NE: 128 QRSD: 74 QT: 410 QTc: 442 Banks: P: 51 NE: 128 QRS: 34 T: 9 INTERPRETIVE STATEMENTS: Normal sinus rhythm Nonspecific T wave abnormality Abnormal ECG Compared to ECG 01/21/2017 09:57:23 Possible ischemia no longer present T-wave abnormality still present Electronically Signed On 04-13-18 11:37:30 LINUX ADMINISTRATOR by Kendrick Colunga
[2018-04-17 11:59] VITALS: BP 140/64; TEMP 97.2
--- NOTE | 2018-04-17 12:03 | P.DS ---
Admission Date: 04/11/18 Discharge Date: 04/13/18 Disposition: TRANSFER TO [facility] Reason for Admission: Hypoglycemia and falls, elevated Creatinine, obsturctive uropathy Consultations: Urology, Dr. Villagomez Procedures: 04/13/2018: Cystoscopy with stent placement, unsuccessful due to amount of tumor /obstruction Hospital Course: This is a 77 year old female with hx of cervical/ovarian cancer s/p chemo and radiation admitted for hypoglycemia and falls. Per family and patient, she had had a few falls throughout the day prior to admission. She was found to have low blood sugar at home and EMS was called. In the ED, she was found to have a creatinine of 15.[address] scan of the abdomen was done, which noted to have obstruction and bilateral hydronephrosis. She was admitted for further care and evaluation. Urology attempted cystoscopy and stent placement which was unsuccessful due to the amount of tumor and obstruction that was noted. She was then transferred to [facility] where her rn telephonic onc doctor is. She remained hemodynamically stable throught the stay and alert and oriented x 4. Vital Signs/Physical Exam: Temp Pulse Resp BP Pulse Ox 97.2 F 72 16 140/64 98 04/17/18 11:59 04/17/18 11:59 04/17/18 11:59 04/17/18 11:59 04/17/18 11:59 General: Alert, In no apparent distress HEENT: Atraumatic, PERRLA, EOMI Neck: Supple, JVD not distended Respiratory: Clear to auscultation bilaterally, Normal air movement Cardiovascular: Regular rate/rhythm, Normal S1 S2 Gastrointestinal: Normal bowel sounds, No tenderness Musculoskeletal: No tenderness Integumentary: No rashes Neurological: Normal speech, Normal tone, Normal affect Lymphatics: No axilla or inguinal lymphadenopathy Laboratory Data at Discharge: WBC 5.7 K/uL (4.3-10.9) 04/12/18 04:50 Hgb 9.2 g/dL (12.0-15.0) L 04/12/18 10:52 Hct 27.6 % (36.0-45.0) L 04/12/18 10:52 Plt Count 149 K/uL (152-406) L 04/12/18 04:50 Sodium 143 mmol/L (136-145) 04/12/18 04:50 Potassium 4.9 mmol/L (3.5-5.1) 04/12/18 04:50 BUN 126 mg/dL (7-18) H 04/12/18 04:50 Creatinine 15.30 mg/dL (0.55-1.3) H* 04/12/18 04:50 Glucose 78 mg/dL (74-106) 04/12/18 04:50 Total Bilirubin 0.3 mg/dL (0.2-1.0) 04/12/18 04:50 AST 22 U/L (15-37) 04/12/18 04:50 ALT 25 U/L (12-78) 04/12/18 04:50 Alkaline Phosphatase 52 U/L (45-117) 04/12/18 04:50 Home Medications: Enalapril/Hydrochlorothiazide [Vaseretic 10-25 mg Tablet] 1 tab PO DAILY Rivaroxaban [Xarelto] 20 mg PO DAILY #30 tab 01/23/17 Glipizide [Glipizide ER] 5 mg PO DAILY 04/11/18 Rosuvastatin Calcium [Crestor] 20 mg PO DAILY 04/11/18 Diet: AHA Activity: Ad jaylene Physician Review: Patient Assessed, Agree with Above Assessment and Plan Time spent managing pt's care (in minutes): 55
== END 2018-04-12 15:25 | disposition short-term general hospital (02) | DRG 988 ==
LOC: ER 09:10 → ERHOLD 14:59 → 2ND 15:29 → 3RD-ICU 16:27
PROVIDERS: ADMIT Family Medicine; ATTEND Family Medicine
PROC: 02HV33Z Insertion of Infusion Device into Superior Vena Cava, Percutaneous Approach (ICD-10-PCS; 2018-04-11)
PROC: B548ZZA Ultrasonography of Superior Vena Cava, Guidance (ICD-10-PCS; 2018-04-11)
PROC: 0UJH8ZZ Inspection of Vagina and Cul-de-sac, Via Natural or Artificial Opening Endoscopic (ICD-10-PCS; 2018-04-12)
PROC: 0TBC8ZX Excision of Bladder Neck, Via Natural or Artificial Opening Endoscopic, Diagnostic (ICD-10-PCS; principal; 2018-04-12 08:00)
DX: E11.649 Type 2 diabetes mellitus with hypoglycemia without coma (principal); N13.1 Hydronephrosis with ureteral stricture, not elsewhere classified; E87.2 Acidosis; Z79.84 Long term (current) use of oral hypoglycemic drugs; N17.9 Acute kidney failure, unspecified; Z86.718 Personal history of other venous thrombosis and embolism; I10 Essential (primary) hypertension; Z85.41 Personal history of malignant neoplasm of cervix uteri; E87.5 Hyperkalemia
CPT/HCPCS: 36415; 51610; 51702; 71045; 74176; 74450; 76377; 76856; 80048; 80053; 81003; 81015; 82962; 83605; 84145; 85014; 85018; 85025; 86850; 86900; 86901; 87040; 87086; 87088; 88305; 93005; 94760; 96361; 96374; 96375; 99285; J0330; J0696; J2250; J2704; J3010; J7030